=== PATIENT | female | born 1995 | race African-American/Black ===

== ENCOUNTER 2017-04-09 15:40 | Emergency (ER) | payer OTHER ==
[2017-04-09 15:49] VITALS: BP 116/72; PULSE 84; TEMP 98.5; BMI 21.6
[2017-04-09] MEDS ORDERED: KETOROLAC TROMETHAMINE 30 MG/1 ML VIAL IM ONE (16:01)
[2017-04-09] MEDS ORDERED: KETOROLAC TROMETHAMINE 30 MG/1 ML VIAL ONE (16:09)
--- NOTE | 2017-04-09 16:21 | PDOC ---
History of Present Illness - General Chief Complaint: Pain, Acute Stated Complaint: CHEST AND BACK PAIN Time Seen by Provider: 04/09/17 15:45 - History of Present Illness Initial Comments: 04/09/17 16:17 The patient is a 21 year old female with no significant past medical history who presents to the ED with complaints of chest and back pain for the past few weeks. She reports a constant ache in her mid sternum which radiates to her mid upper back. She denies any alleviating factors but reports the pain is worse when she carries her heavy school bag on her left shoulder. The patient also notes that she drinks Red Bull often and experiences palpitations after consumption, as well as slight chest discomfort. She denies any associated shortness of breath, diaphoresis, or leg swelling. She denies use of oral contraceptives or long periods of sitting/travel. She denies any fever, chills, nausea, vomiting, diarrhea, cough, or urinary symptoms. Past History - Past Medical History Allergies/Adverse Reactions: Allergies Allergy/AdvReac Type Severity Reaction Status Date / Time No Known Allergies Allergy Verified 04/09/17 15:44 Home Medications: Ambulatory Orders NK [No Known Home Medication] 05/04/15 COPD: No Other medical history: PT DENIES - Suicide/Smoking/Psychosocial Hx Smoking History: Never smoked Hx Alcohol Use: No Drug/Substance Use Hx: No Substance Use Type: None Review of Systems - Review of Systems Comments:: 04/09/17 16:18 "GENERAL/CONSTITUTIONAL: No fever or chills. No weakness. HEAD, EYES, EARS, NOSE AND THROAT: No change in vision. No ear pain or discharge. No sore throat. CARDIOVASCULAR: Present: chest pain No shortness of breath. RESPIRATORY: No cough, wheezing, or hemoptysis. GASTROINTESTINAL: No nausea, vomiting, diarrhea or constipation. GENITOURINARY: No dysuria, frequency, or change in urination. MUSCULOSKELETAL: Present: mid upper back pain No neck pain. SKIN: No rash NEUROLOGIC: No headache, vertigo, loss of consciousness, or change in strength/ sensation. ENDOCRINE: No increased thirst. No abnormal weight change. HEMATOLOGIC/LYMPHATIC: No anemia, easy bleeding, or history of blood clots. ALLERGIC/IMMUNOLOGIC: No hives or skin allergy. " *Physical Exam - Vital Signs Last Vital Signs Temp Pulse Resp BP Pulse Ox 98.5 F 84 17 116/72 100 04/09/17 15:44 04/09/17 15:44 04/09/17 15:44 04/09/17 15:44 04/09/17 15:44 - Physical Exam Comments: 04/09/17 16:18 "GENERAL: Awake, alert, and fully oriented, in no acute distress HEAD: No signs of trauma EYES: PERRLA, EOMI, sclera anicteric, conjunctiva clear ENT: Auricles normal inspection, hearing grossly normal, nares patent, oropharynx clear without exudates. Moist mucosa NECK: Nontender, no stepoffs, Normal ROM, supple, no lymphadenopathy, JVD, or masses LUNGS: Breath sounds equal, clear to auscultation bilaterally. No wheezes, and no crackles HEART: Regular rate and rhythm, normal S1 and S2, no murmurs, rubs or gallops ABDOMEN: Soft, nontender, normoactive bowel sounds. No guarding, no rebound. No masses EXTREMITIES: Normal range of motion, no edema. No clubbing or cyanosis. No cords, erythema, or tenderness BACK: no midline tenderness, no stepoffs, mild L paraspinal thoracic tenderness NEUROLOGICAL: Cranial nerves II through XII intact. 5/5 strength and sensation in all extremities, Normal speech, normal gait, normal cerebellar function SKIN: Warm, Dry, normal turgor, no rashes or lesions noted. " Heart Score/ECG Review - History History: Slightly suspicious - Electrocardiogram EKG: Normal - Age Age: </= 45 - Risk Factors Based on the list above the patient has:: No risk factors known - Troponin Troponin: </= normal limit - Score Heart Score - Total: 0 - ECG Impressions Comment:: 04/09/17 16:20 NSR, no MINI/STDs, no TWIs, axis wnl, intervals wnl ED Treatment Course - LABORATORY CBC & Chemistry Diagram: 04/09/17 16:30 04/09/17 16:30 - ADDITIONAL ORDERS Additional order review: 04/09/17 16:30 RBC 4.35 MCV 92.8 MCHC 34.1 RDW 11.7 MPV 8.1 Neutrophils % 76.7 Lymphocytes % 18.7 Monocytes % 3.8 Eosinophils % 0.5 Basophils % 0.3 - RADIOLOGY Radiology Studies Ordered: Category Date Time Status CHEST PA & LAT [RAD] Stat Radiology 04/09/17 16:01 Completed - Medications Given in the ED: ED Medications Discontinued Medications Generic Name Dose Route Start Last Admin Trade Name Albert PRN Reason Stop Dose Admin Ketorolac Tromethamine 30 mg 04/09/17 16:01 04/09/17 16:39 Toradol Injection - IM 04/09/17 16:02 30 mg ONCE ONE Administration Potassium Chloride 40 meq 04/09/17 17:26 04/09/17 17:40 K-Dur - PO 04/09/17 17:27 40 meq ONCE ONE Administration Medical Decision Making - Medical Decision Making 04/09/17 16:20 21 F with weeks of chest and back pain. LIkely related to wearing heavy bookbag. Pt with no cardiac risk factors and nonischemic EKG. Pt also with no PE risk factors and has PERC score of 0. - Labs, trop - CXR - Toradol 04/09/17 17:42 CBC,CMP WBC 6.4 K/mm3 (4.0-10.8) 04/09/17 16:30 RBC 4.35 M/mm3 (3.60-5.2) 04/09/17 16:30 Hgb 13.8 GM/dl (10.7-15.3) 04/09/17 16:30 Hct 40.4 % (32.4-45.2) 04/09/17 16:30 MCV 92.8 fl (80-96) 04/09/17 16:30 MCH 31.6 pg (25.7-33.7) 04/09/17 16:30 MCHC 34.1 g/dl (32.0-36.0) 04/09/17 16:30 RDW 11.7 % (11.6-15.6) 04/09/17 16:30 Plt Count 282 K/MM3 (134-434) 04/09/17 16:30 MPV 8.1 fl (7.5-11.1) 04/09/17 16:30 Neutrophils % 76.7 % (42.8-82.8) 04/09/17 16:30 Lymphocytes % 18.7 % (8-40) 04/09/17 16:30 Monocytes % 3.8 % (3.8-10.2) 04/09/17 16:30 Eosinophils % 0.5 % (0-4.5) 04/09/17 16:30 Basophils % 0.3 % (0-2.0) 04/09/17 16:30 Sodium 133 mmol/L (136-145) L 04/09/17 16:30 Potassium 3.1 mmol/L (3.5-5.1) L 04/09/17 16:30 Chloride 101 mmol/L (98-107) 04/09/17 16:30 Carbon Dioxide 28 mmol/L (22-28) 04/09/17 16:30 Anion Gap 4 (8-16) L 04/09/17 16:30 BUN 7 mg/dl (7-18) 04/09/17 16:30 Creatinine 0.7 mg/dl (0.6-1.3) 04/09/17 16:30 Creat Clearance w eGFR > 60 (>60) 04/09/17 16:30 Random Glucose 104 mg/dl (74-106) 04/09/17 16:30 Calcium 9.3 mg/dl (8.4-10.2) 04/09/17 16:30 Total Bilirubin 1.2 mg/dl (0.2-1.0) H 04/09/17 16:30 AST 18 U/L (10-42) 04/09/17 16:30 ALT 10 U/L (10-40) 04/09/17 16:30 Alkaline Phosphatase 46 U/L (32-92) 04/09/17 16:30 Creatine Kinase 56 IU/L (26-192) 04/09/17 16:42 Troponin I < 0.03 ng/ml (0.00-0.06) 04/09/17 16:42 Total Protein 7.5 g/dl (6.4-8.3) 04/09/17 16:30 Albumin 4.5 g/dl (3.5-5.0) 04/09/17 16:30 Labs unremarkable CXR clear. Pt reassessed - has improvement in pain s/p toradol. Pt is well appearing, vitals normal, clinically stable for DC. I discussed the physical exam findings, ancillary test results and final diagnoses with the patient. I answered all of the patient's questions. The patient was satisfied with the care received and felt comfortable with the discharge plan and treatment plan. The patient agrees to follow up with the primary care physician within 24-72 hours. *DC/Admit/Observation/Transfer Diagnosis at time of Disposition: Chest pain - Discharge Dispostion Disposition: HOME Condition at time of disposition: Stable - Referrals - Patient Instructions Printed Discharge Instructions: DI for Atypical Chest Pain Additional Instructions: Your potassium today was slightly low. Follow up with your primary doctor to have this rechecked. You should also follow up with your primary doctor for further evaluation of your chest pain. Even though your blood tests and EKG were normal today, we cannot rule out all diseases that cause chest pain. Call your doctor for an appointment within 1 week. If you experience worsening chest pain, shortness of breath, fevers, or any other concerning symptoms, return to the ER immediately. - Post Discharge Activity - Attestations Physician Attestion: 04/09/17 17:45 I, Dr. Tc Quijano MD, attest that this document has been prepared under my direction and personally reviewed by me in its entirety. I further attest, that it accurately reflects all work, treatment, procedures and medical decision -making performed by me.
[2017-04-09 16:50] LABS: ALBUMIN 4.5 g/dl (3.5-5.0); ALK PHOS 46 U/L (32-92); ANION GAP 4 (8-16); BILIRUBIN,TOTAL 1.2 mg/dl (0.2-1.0); BLOOD UREA NITROGEN 7 mg/dl (7-18); CALCIUM 9.3 mg/dl (8.4-10.2); CHLORIDE 101 mmol/L (98-107); CO2 28 mmol/L (22-28); CREATININE 0.7 mg/dl (0.6-1.3); GLUCOSE,RANDOM 104 mg/dl (74-106); POTASSIUM 3.1 mmol/L (3.5-5.1); SGOT/AST 18 U/L (10-42); SGPT/ALT 10 U/L (10-40); SODIUM 133 mmol/L (136-145); TOT PROT 7.5 g/dl (6.4-8.3)
[2017-04-09 16:52] LABS: BASO % 0.3 % (0-2.0); EOS % 0.5 % (0-4.5); HEMATOCRIT 40.4 % (32.4-45.2); HEMOGLOBIN 13.8 GM/dl (10.7-15.3); LYMPH % 18.7 % (8-40); MCH 31.6 pg (25.7-33.7); MCHC 34.1 g/dl (32.0-36.0); MEAN CELL VOLUME 92.8 fl (80-96); MEAN PLT VOLUME 8.1 fl (7.5-11.1); MONO % 3.8 % (3.8-10.2); NEUT % 76.7 % (42.8-82.8); PLATELET COUNT 282 K/MM3 (134-434); RBC 4.35 M/mm3 (3.60-5.2); RDW 11.7 % (11.6-15.6); WHITE BLOOD COUNT 6.4 K/mm3 (4.0-10.8)
[2017-04-09] MEDS ORDERED: POTASSIUM CHLORIDE TABS 20 MEQ TABLET.ER (FP) PO ONE ×2 (17:26→17:35)
--- NOTE | 2017-04-11 19:58 | EKG ---
Test Reason : Blood Pressure : / mmHG Vent. Rate : 102 BPM Atrial Rate : 102 BPM P-R Int : 154 ms QRS Dur : 068 ms QT Int : 326 ms P-R-T Axes : 086 052 058 degrees QTc Int : 424 ms SINUS TACHYCARDIA OTHERWISE NORMAL ECG NO PREVIOUS ECGS AVAILABLE Confirmed by STEFANY PURI MD ([id number] on 04/11/2017 7:58:00 PM Referred By: JEZ Confirmed By:STEFANY PURI MD
== END 2017-04-09 17:47 | disposition home or self-care (01) ==
LOC: FER 15:40
PROC: 3E0333Z Introduction of Anti-inflammatory into Peripheral Vein, Percutaneous Approach (ICD-10-PCS; principal; 2017-04-09)
DX: R07.9 Chest pain, unspecified (principal)
CPT/HCPCS: 36415; 71046-TC-FY; 80053; 82550; 84484; 84703; 85025; 93005; 99282-25

== ENCOUNTER 2020-10-22 12:17 | Emergency (ER) | payer SELFPAY ==
[2020-10-22 12:35] VITALS: BP 132/85; PULSE 111; TEMP 98; BMI 23.3
[2020-10-22] MEDS ORDERED: ACETAMINOPHEN 325 MG TABLET (FP) PO ONE (13:23)
[2020-10-22] MEDS ORDERED: ACETAMINOPHEN 325 MG TABLET (FP) ONE (13:38)
[2020-10-22 14:12] LABS: BASO % 0.4 % (0-2.0); EOS % 0.1 % (0-4.5); HEMATOCRIT 36.6 % (32.4-45.2); HEMOGLOBIN 13.2 GM/dL (10.7-15.3); LYMPH % 13.6 % (8-40); MEAN CELL VOLUME 91.8 fl (80-96); MEAN PLT VOLUME 8.5 fl (7.5-11.1); MONO % 5.2 % (3.8-10.2); NEUT % 80.7 % (42.8-82.8); PLATELET COUNT 183 10^3/uL (134-434); RBC 3.99 M/mm3 (3.60-5.2); RDW 12.2 % (11.6-15.6); WHITE BLOOD COUNT 6.3 K/mm3 (4.0-10.0)
[2020-10-22 14:25] LABS: CHLORIDE 104 mmol/L (98-107); SODIUM 138 mmol/L (136-145)
[2020-10-22 14:27] LABS: CALCIUM 8.8 mg/dL (8.5-10.1)
[2020-10-22 14:28] LABS: ANION GAP 6 MMOL/L (8-16); BLOOD UREA NITROGEN 7.6 mg/dL (7-18); CO2 27 mmol/L (21-32); GLUCOSE,RANDOM 86 mg/dL (74-106)
[2020-10-22 14:31] LABS: CREATININE 0.6 mg/dL (0.55-1.3); SGOT/AST 16 U/L (15-37); SGPT/ALT 15 U/L (13-61)
[2020-10-22 14:32] LABS: BILIRUBIN,TOTAL 1.6 mg/dL (0.2-1)
[2020-10-22 14:33] LABS: ALK PHOS 53 U/L (45-117)
[2020-10-22 14:34] LABS: TOT PROT 7.3 g/dl (6.4-8.2)
== END 2020-10-22 18:23 | disposition home or self-care (01) ==
LOC: JERFT 12:17 → JER 12:17 → JERFT 18:23
DX: R07.89 Other chest pain (principal)
CPT/HCPCS: 36415; 80053; 82550; 84484; 85025; 93005; 93010; 99284-25

== ENCOUNTER → 2021-03-29 | Emergency (ER) | payer OTHER ==
[~2021-03-29] MED LIST: KETOROLAC TROMETHAMINE 30 MG/1 ML VIAL IM ONE; KETOROLAC TROMETHAMINE 30 MG/1 ML VIAL ONE; valACYclovir HCL 1000 MG TABLET PO ONE; valACYclovir HCL 500 MG TABLET (FP) ONE; valACYclovir HCL 500 MG TABLET (FP) PO ONE
[2021-03-29 20:12] VITALS: BP 124/84; PULSE 105; BMI 24.3
== END | disposition home or self-care (01) ==
LOC: JER 20:04
PROC: 3E023GC Introduction of Other Therapeutic Substance into Muscle, Percutaneous Approach (ICD-10-PCS; principal; 2021-03-29)
DX: B01.9 Varicella without complication (principal)
CPT/HCPCS: 96372; 99284-25

== ENCOUNTER 2021-03-31 14:52 | Emergency (ER) | payer OTHER ==
[2021-03-31 15:12] VITALS: BP 127/85; PULSE 108; TEMP 98.6; BMI 24.3
== END 2021-03-31 16:48 | disposition home or self-care (01) ==
LOC: JERFT 14:52
DX: R51.9 Headache, unspecified (principal)
CPT/HCPCS: 99283-25

== ENCOUNTER 2021-11-29 16:32 | Emergency (ER) | payer OTHER ==
[2021-11-29 16:47] VITALS: BP 125/81; PULSE 116; RESP 18; TEMP 97.9; BMI 24.5
[2021-11-29] MEDS ORDERED: LORATADINE 10 MG TABLET PO ONE (17:26)
[2021-11-29] MEDS ORDERED: LORATADINE 10 MG TABLET ONE (17:28)
[2021-11-29 18:13] LABS: BASO % 0.4 % (0-2.0); EOS % 0.4 % (0-4.5); HEMATOCRIT 40.2 % (32.4-45.2); LYMPH % 26.3 % (8-40); MCH 32.7 pg (25.7-33.7); MCHC 34.8 g/dl (32.0-36.0); MEAN CELL VOLUME 94.1 fl (80-96); MEAN PLT VOLUME 8.6 fl (7.5-11.1); MONO % 6.7 % (3.8-10.2); NEUT % 66.2 % (42.8-82.8); PLATELET COUNT 245 10^3/uL (134-434); RBC 4.27 M/mm3 (3.60-5.2); RDW 12.3 % (11.6-15.6)
[2021-11-29 18:35] LABS: CHLORIDE 106 mmol/L (98-107); SODIUM 141 mmol/L (136-145)
[2021-11-29 18:37] LABS: CALCIUM 9.2 mg/dL (8.5-10.1)
[2021-11-29 18:39] LABS: ALBUMIN 4.2 g/dl (3.4-5.0); ANION GAP 7 MMOL/L (8-16); CO2 27 mmol/L (21-32); GLUCOSE,RANDOM 96 mg/dL (74-106)
[2021-11-29 18:41] LABS: CREATININE 0.9 mg/dL (0.55-1.3); SGOT/AST 13 U/L (15-37); SGPT/ALT 11 U/L (13-61)
[2021-11-29 18:43] LABS: BILIRUBIN,TOTAL 1.6 mg/dL (0.2-1); TOT PROT 7.4 g/dl (6.4-8.2)
[2021-11-29 18:44] LABS: ALK PHOS 53 U/L (45-117)
[2021-11-29 20:55] LABS: ERYTHROCYTE SEDIMENTATION RATE 4 mm/hr (0-20)
== END 2021-11-29 19:18 | disposition home or self-care (01) ==
LOC: JER 16:32
DX: H93.11 Tinnitus, right ear (principal)
CPT/HCPCS: 36415; 70480-TC; 80053; 85025; 85651; 86140; 99284-25

== ENCOUNTER 2024-10-14 12:34 | Emergency (ER) | payer BC, OTHER ==
[2024-10-14 12:48] VITALS: RESP 20; TEMP 98; BMI 25.8
[2024-10-14 13:44] LABS: ABSOLUTE IMMATURE GRANULOCYTES 0.01 x10^3/uL (0.0-0.031); BASOPHILS # 0.02 x10^3/uL (0.01-0.08); EOSINOPHIL % 0.7 % (0.7-5.8); EOSINOPHILS # 0.04 x10^3/uL (0.04-0.36); MCHC 33.1 g/dl (32.2-35.5); MEAN CELL VOLUME 91.1 fl (79.4-94.8); MEAN PLT VOLUME 10.0 fl (9.4-12.3); MONOCYTE # 0.32 x10^3/uL (0.24-0.86); MONOCYTE % 5.9 % (4.7-12.5); RDW 12.2 % (12.1-16.8)
[2024-10-14 13:53] LABS: INR 1.02 (0.83-1.09); PROTHROMBIN TIME (PATIENT) 11.2 SEC (9.7-13.0)
[2024-10-14 14:06] LABS: GLUCOSE,RANDOM 89.0 mg/dL (74-106)
[2024-10-14 14:07] LABS: TOT PROT 7.4 g/dl (6.4-8.2)
[2024-10-14 14:08] LABS: CO2 27.0 mmol/L (21-32)
[2024-10-14 14:09] LABS: ALK PHOS 68.0 U/L (40-150)
[2024-10-14 14:12] LABS: CREATININE 0.84 mg/dL (0.55-1.3); SGOT/AST 17.0 U/L (5-34); SGPT/ALT 10.0 U/L (0-55)
[2024-10-14] MEDS: SODIUM CHLORIDE 0.9% 500 ML INFUS.BAG IV ONE (14:22)
[2024-10-14 16:13] LABS: HCV DIAGNOSTIC IN-HOUSE W/RFLX NON-REACTIVE (NONREACTIVE)
[2024-10-14 16:14] LABS: HIV INTERPRETATION NEGATIVE (NEGATIVE)
[2024-10-14 17:18] VITALS: BP 120/90; PULSE 98
== END 2024-10-14 17:17 | disposition home or self-care (01) ==
LOC: JER 12:34 → JERFT 12:34
DX: M54.2 Cervicalgia (principal); R07.2 Precordial pain; R21 Rash and other nonspecific skin eruption; L29.9 Pruritus, unspecified; R22.1 Localized swelling, mass and lump, neck
CPT/HCPCS: 36415; 70491-TC; 71260-TC; 80053; 84484; 84703; 85025; 85379; 85610; 85730; 86803; 87389; 93005; 93010; 99285-25; Q9967